=== PATIENT | female | born 1990 | race Caucasian/White ===

== ENCOUNTER 2017-11-07 09:53 | Emergency (ER) | payer MEDICAID, OTHER ==
[~2017-11-07] VITALS: Ht 162.6 cm; Wt 61.7 kg
[2017-11-07 10:50] VITALS: BP 116/75
== END 2017-11-07 11:05 | disposition home or self-care (01) ==
LOC: ER 09:55
DX: Z02.83 Encounter for blood-alcohol and blood-drug test (principal); G43.909 Migraine, unspecified, not intractable, without status migrainosus; F10.10 Alcohol abuse, uncomplicated; F17.200 Nicotine dependence, unspecified, uncomplicated
CPT/HCPCS: 99282; A4606 ×2; Z7610 ×2